=== PATIENT | male | born 1930 | race Caucasian/White ===

== ENCOUNTER 2017-12-04 01:12 | Inpatient (IN) | payer OTHER ==
[2017-12-04] VITALS (10 sets, daily range): BP systolic 137–164; BP diastolic 62–84; PULSE 79–93; TEMP 36.7–37.2; O2SAT 90–96; BMI 37.7
[~2017-12-04] VITALS: Ht 157.5 cm; Wt 93.5 kg
[~2017-12-04 01:12] MED LIST: AGG PO; ASPEC81 PO; CRS20 PO; ERGO1CAP35 PO; GLC500 PO; INSUINJ14 SC; LISI-725 PO; MCR5 PO; PANT40TA PO; SITA100T3 PO; SYN75 PO
[2017-12-04] MEDS ORDERED: CEFTRIAXONE SOD INJ 1 GM ADDVIAL IV STA (01:40)
[2017-12-04] MEDS ORDERED: ALBUT/IPRATROP 3MG/0.5MG NEB 3 ML VIAL INH STA (01:40)
[2017-12-04] MEDS ORDERED: SODIUM CHLORIDE 0.9% 500ML 500 ML IV STA (02:02)
[2017-12-04] MEDS ORDERED: LEVAQUIN 750MG / 150ML D5W IV STA (02:02)
[2017-12-04] MEDS ORDERED: GLIM4TAB2 PO (02:17)
[2017-12-04] MEDS ORDERED: MTR400 PO (02:17)
[2017-12-04] MEDS ORDERED: AGG PO (02:18)
[2017-12-04] MEDS ORDERED: AMLO-110 PO (02:19)
[2017-12-04] MEDS ORDERED: METF-384 PO (02:19)
[2017-12-04] MEDS ORDERED: CRS/10 PO (02:19)
[2017-12-04 02:27] LABS: HEMOGLOBIN 13.8 g/dL (14.0-18.0); MEAN CELL VOLUME 81.8 fL (80-100); MEAN CORPUSCULAR HEMOGLOBIN 28.9 pg (25-34); MEAN CORPUSCULAR HGB CONC 35.4 g/dl (32-36); MEAN PLATELET VOLUME 9.4 fL (7.4-10.4); PLATELET COUNT 156 K/uL (130-400); RED CELL DISTRIBUTION WIDTH CV 14.2 % (11.5-14.5); RED CELL DISTRIBUTION WIDTH SD 42.5 fL (36.4-46.3); WHITE BLOOD COUNT 8.42 K/uL (4.8-10.8)
[2017-12-04 02:33] LABS: INFLUENZA A PCR Neg for Influ A (NEG); INFLUENZA B PCR Neg for Influ B (NEG)
[2017-12-04 02:42] LABS: PTT PATIENT 26.6 SECONDS (21.0-31.0)
[2017-12-04 02:47] LABS: BASO % 0.1 %; BASO ABS # 0.01 K/uL (0-0.2); IG# 0.02 K/uL (0.00-0.02); LYMPH % 4.9 %; LYMPH ABS # 0.41 K/uL (1.2-3.4); MONO % 6.5 %; MONO ABS # 0.55 K/uL (0.11-0.59); NEUT % 88.3 %; NEUT ABS # 7.43 K/uL (1.4-6.5)
[2017-12-04 02:49] LABS: ALBUMIN 3.4 gm/dl (3.4-5.0); CALCIUM 8.5 mg/dl (8.5-10.1); CREATININE 1.23 mg/dl (0.60-1.40); POTASSIUM 3.9 mmol/L (3.5-5.1)
[2017-12-04 02:52] LABS: TOTAL PROTEIN 7.1 gm/dl (6.4-8.2)
[2017-12-04] MEDS ORDERED: MAGNESIUM SULFATE 1GM / D5W 1 GM BAG IV STA (02:55)
[2017-12-04] MEDS ORDERED: INSULIN GLARGINE SOLOSTAR 100 UNITS/ML 3 ML PEN SC ONE ×2 (04:07→07:45)
[2017-12-04] MEDS ORDERED: OPTIRAY 320 IV PRN (04:15)
[2017-12-04] MEDS ORDERED: LEVALBUTEROL/IPRATROPIUM NEB INH PRN (05:30)
[2017-12-04] MEDS ORDERED: ACETAMINOPHEN 325 MG TAB PO PRN (05:30)
[2017-12-04] MEDS ORDERED: HYDROmorphone INJ 0.5 MG/0.5 ML SYR IV PRN (05:30)
[2017-12-04] MEDS ORDERED: TRAMADOL HCL 50 MG TAB PO PRN (05:30)
[2017-12-04] MEDS ORDERED: GLUCOSE 10 TABS/TUBE PO PRN (05:30)
[2017-12-04] MEDS ORDERED: GLUCAGON FOR INJ 1 MG VIAL SQ PRN (05:30)
[2017-12-04] MEDS ORDERED: DEXTROSE 50% 50 ML SYR IV PRN (05:30)
[2017-12-04] MEDS ORDERED: PROCHLORPERAZINE INJ 5 MG in SYRINGE 4 ML IV PRN (05:30)
[2017-12-04] MEDS ORDERED: GLUCOSE 40% GEL 15 GM TUBE PO PRN (05:30)
[2017-12-04] MEDS ORDERED: LEVALBUTEROL/IPRATROPIUM NEB INH SCH ×2 (06:00→12:00)
[2017-12-04] MEDS ORDERED: LEVALBUTEROL 1.25MG/0.5ML NEB INH PRN (06:30)
[2017-12-04] MEDS ORDERED: IPRATROPIUM BROMIDE NEB SOLN 0.02% 2.5 ML VIAL INH PRN (06:30)
--- NOTE | 2017-12-04 06:37 | DIAGNOSTIC IMAGING REPORT ---
CT HEAD WITHOUT CONTRAST (CT) CLINICAL HISTORY: fall, transient leg weakness COMPARISON STUDY: October 11, 2014 TECHNIQUE: Axial CT of the brain is performed from the vertex to the skull base. IV contrast was not administered for this examination. A dose lowering technique was utilized adhering to the principles of ALARA. CT DOSE: FINDINGS: No intra or extra-axial mass lesions are visualized. There is no CT evidence of acute cortical infarction. There is no evidence of midline shift. There is no acute hemorrhage. No calvarial fractures are visualized. There are patchy white matter hypodensities likely on a small vessel basis. There is no evidence of pathologic ventricular dilatation. There is an old pontine infarct. There is trace fluid within the right maxillary sinus. Multiple ethmoid air cells are opacified. There is sphenoid sinus and frontal sinus mucosal thickening. There is an old defect within the left lamina papyracea. IMPRESSION: 1. No acute intracranial findings 2. Inflammatory changes in the paranasal sinuses. 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 Electronically signed by: Enoc Silva M.D. 12/04/2017 6:36 AM Dictated Date/Time: 12/04/2017 6:34 AM
[2017-12-04] MEDS ORDERED: LEVALBUTEROL/IPRATROPIUM NEB INH STA (06:40)
[2017-12-04] MEDS ORDERED: IPRATROPIUM BROMIDE NEB SOLN 0.02% 2.5 ML VIAL INH STA (06:46)
[2017-12-04] MEDS ORDERED: LEVALBUTEROL 1.25MG/0.5ML NEB INH STA (06:46)
--- NOTE | 2017-12-04 06:58 | HISTORY & PHYSICAL EXAMINATION ---
DATE OF ADMISSION: 12/04/2017 PRIMARY CARE DOCTOR: Dr. Olmsetad and the [facility]. CHIEF COMPLAINT: Fall, cough. HISTORY OF PRESENT ILLNESS: History obtained from the patient, family, and records. Medical history significant for hypertension, DM2 on oral meds, history of CVA, hyperlipidemia, BPH, reflux, hypothyroidism. Recent confinement 2010 for CVA. Patient discharged on Aggrenox. Three days history of cough symptoms productive of white sputum. No chest pain. Patient denies shortness of breath, although patient's family could see patient struggling to breathe. Sick contacts, no flu-like symptoms. Denies aspiration. Patient was in his room when he felt his legs give out. Patient could not get up, legs felt weak. No strength for some time. Patient found by son trying to get up. No head trauma, no syncope/LOC. Patient brought to Emergency Room. Noted to be hypoxemic. O2 sats in the 80s. Received IV Ceftriaxone, Levaquin for possible pneumonia. MEDICAL HISTORY: As above. SURGERIES: None.. HOME MEDICATIONS: Include Aggrenox, Norvasc, glimepiride, ibuprofen, lisinopril, Glucophage, Crestor, Januvia. ALLERGIES: No known drug allergies. FAMILY HISTORY: Diabetes, heart disease. PERSONAL AND SOCIAL HISTORY: Nonsmoker, no chronic intake of alcoholic beverages. Retired cross. REVIEW OF SYSTEMS: As per HPI. All 10 systems reviewed, all other ROS negative. PHYSICAL EXAMINATION: VITAL SIGNS: Blood pressure was noted to be 148/76, later 160/80, pulse rate 101 later 92, RR 22, temperature 36.6, sats 86 on room air, later 91 on 2 liters. GENERAL: Noted to be in minimal respiratory distress, coughing. Slightly anxious. SKIN: Pallor, warm. HEENT: Partial alopecia. Pale palpebral conjunctivae. No ptosis. Dry mucosa. Nasal cannula in place NECK: Supple, nontender. CHEST: Occasional wheeze. No tenderness. HEART: Regular rate and rhythm, no murmur. ABDOMEN: Some distention, nontender. EXTREMITIES: No edema. No gross deformity. No tenderness. NEUROLOGIC: Coherent. No gross focality except for mild hearing impairment and intention tremors of the upper extremities. LABORATORY DATA: Hemoglobin was noted to be 13.8, hematocrit 39, white cells 8.42, platelets 156. Sodium 136, potassium 3.9, chloride 103, CO2 20, BUN 22, creatinine 1.23, glucose 332. Hemoglobin A1c from January [address] head initial read no acute pathology. CTA, no central PE, dissection, patchy infiltrates right upper lung. ABG; pH 7.40, pCO2 32, pO2 64, sats 90 on 2 liters. ASSESSMENT: 1. Acute hypoxemic respiratory failure secondary to right bronchopneumonia no sepsis. 2. Hypertension, slightly elevated. 3. Mild anemia new onset. Last outpatient hemoglobin from the [facility] from 2012 was 14.2 4. DM2, on oral medications suboptimal control as of recent outpatient HgA1c. 5. History of cerebrovascular accident. PLAN: GMF supplemental O2 Nebs RTC p.r.n. Ceftriaxone, Doxycycline. Hold off on steroids for now given poorly controlled diabetes. Anemia workup. Basal insulin, ISS BG goal 140-180, carb count coverage indicated for suboptimal blood sugar control Check hemoglobin A1c; Diabetic education will likely be needed during confinement. PT, OT eval. DVT prophylaxis, Lovenox subQ. Full code. Patient's son requesting for updates from providers. Milton Desai Jr. at [phone]. [facility]
[2017-12-04] MEDS ORDERED: NSS + 20MEQ KCL 1000ML 1,000 ML IV ONE (07:00)
[2017-12-04] MEDS ORDERED: INSULIN ASPART 100 UNITS/ML 3 ML PEN SC ONE (07:00)
[2017-12-04] MEDS ORDERED: LISINOPRIL 20 MG TAB PO ONE (07:00)
[2017-12-04] MEDS: IPRATROPIUM BROMIDE NEB SOLN 0.02% 2.5 ML VIAL INH SCH ×3 (07:07→18:56)
[2017-12-04] MEDS: LEVALBUTEROL 1.25MG/0.5ML NEB INH SCH ×3 (07:08→18:56)
--- NOTE | 2017-12-04 07:14 | DIAGNOSTIC IMAGING REPORT ---
SINGLE VIEW CHEST CLINICAL HISTORY: Dyspnea. FINDINGS: An AP, portable, upright chest radiograph is compared to study dated 10/11/2014. The examination is degraded by portable technique and patient rotation. The heart is enlarged and there is atherosclerotic calcification of the thoracic aorta. The pulmonary vasculature is noncongested. Dependent airspace opacities likely represent atelectasis. Scattered calcified granulomas are observed. No large pleural effusion or pneumothorax is seen. The skeletal structures are osteopenic. The bony thorax is grossly intact. IMPRESSION: 1. Cardiomegaly without radiographic evidence of congestive failure. 2. Bibasilar opacities likely represent atelectasis. Correlate clinically for evidence of a mild infectious/inflammatory pneumonitis. Electronically signed by: Nelson Grimes M.D. 12/04/2017 7:12 AM Dictated Date/Time: 12/04/2017 7:11 AM
[2017-12-04 07:18] LABS: HEMOGLOBIN A1C 10.9 % (4.5-5.6)
--- NOTE | 2017-12-04 07:34 | DIAGNOSTIC IMAGING REPORT ---
CT ANGIOGRAM OF THE CHEST CLINICAL HISTORY: Dyspnea. Weakness. COMPARISON STUDY: Chest x-ray dated 12/04/2017. TECHNIQUE: Following the IV administration of 93 cc of Optiray 320, CT angiogram of the chest was performed from the upper abdomen to the thoracic inlet utilizing the pulmonary embolus protocol. Images are reviewed in the axial, sagittal, and coronal planes. 3-D MIPS images are created and assessed. IV contrast was administered without complication. A dose lowering technique was utilized adhering to the principles of ALARA. The examination is severely compromised by motion artifact, as well as by streak artifact from the arms which could not be elevated above the chest. CT DOSE: 1223.34 mGy.cm FINDINGS: Thyroid: Atrophic. Thoracic aorta: There is mild atherosclerotic calcification of the thoracic aorta, which is normal in caliber and demonstrates standard 3-vessel arch anatomy. No dissection is seen. Pulmonary vasculature: The pulmonary trunk is normal in caliber. There are no filling defects identified in main or lobar pulmonary arteries to suggest pulmonary embolus. Evaluation of the peripheral vessels is significantly compromised by motion artifact. Heart: The heart is mildly enlarged and without pericardial effusion. The coronary arteries are densely calcified. Lungs and pleural spaces: Evaluation of the lung parenchyma is significantly degraded by motion artifact. Scattered calcified granulomas are observed. Foci of scarring/atelectasis are present at the lung bases. Patchy groundglass consolidation is identified in the right upper lobe. Mild patchy consolidative changes also suggested at the left lung base. No pleural effusion is identified. Mediastinum: There is no mediastinal lymphadenopathy. There are calcified mediastinal nodes. Ellen: There are calcified hilar nodes. No hilar adenopathy is identified.. Axillae: There is no axillary lymphadenopathy. Upper abdomen: There is a small hiatal hernia. Numerous calcified hepatic and splenic granulomas are observed. Skeletal structures: The skeletal structures are osteopenic. Degenerative change is noted in the shoulders and thoracic spine. No lytic or blastic bony lesions are seen. IMPRESSION: 1. Severely streak and motion compromised examination. 2. There is no evidence of central pulmonary embolus in the main or lobar pulmonary arteries. 3. Patchy ground glass consolidation is identified in the right upper lobe and at the left lung base. The appearance is typical for an infectious/inflammatory pneumonitis. Radiographic follow-up to resolution is recommended. 4. Mild cardiac enlargement. 5. Additional findings as above. Electronically signed by: Nelson Grimes M.D. 12/04/2017 7:33 AM Dictated Date/Time: 12/04/2017 7:28 AM
[2017-12-04] MEDS: PANTOprazole SOD 40 MG TAB PO SCH (07:46)
[2017-12-04] MEDS: DIPYRIDAMOLE/ASPIRIN CAP PO SCH ×2 (07:46→20:59)
[2017-12-04] MEDS: AMLODIPINE BESYLATE 5 MG TAB PO SCH (07:46)
[2017-12-04] MEDS: ENOXAPARIN 30 MG/0.3 ML SYR SQ SCH (07:47)
[2017-12-04] MEDS: ROSUVASTATIN CALCIUM 10 MG TAB PO SCH (07:47)
[2017-12-04] MEDS ORDERED: LEVALBUTEROL 1.25MG/0.5ML NEB INH SCH (09:00)
[2017-12-04] MEDS ORDERED: IPRATROPIUM BROMIDE NEB SOLN 0.02% 2.5 ML VIAL INH SCH (09:00)
[2017-12-04] MEDS: INSULIN ASPART 100 UNITS/ML 3 ML PEN SC SCH ×3 (12:33→21:01)
--- NOTE | 2017-12-04 14:21 | EMERGENCY ROOM VISIT NOTE ---
History Report prepared by Obie: Rolando Grant Under the Supervision of: Dr. Nelson Flowers M.D. First contact with patient: 01:33 Chief Complaint: FALL Stated Complaint: FLU SYMPTOMS,WEAK LEGS,FELL History of Present Illness The patient is an 87 year old male who presents to the Emergency Room with complaints of constant weakness beginning tonight at 2330. The patient states that he fell tonight when he was trying to get up from the bed because his legs were weak and gave out on him. He notes that he did not hit his head and did not lose consciousness after his fall. He reports that he had not been feeling weak over the last few days, he had an episode of vomiting and notes a cough but denies any urinary symptoms, fever, current SOB, and CP. The patient states that his leg swelling is normal for him. Per son, the patient has been congested for the last two days. He notes that following his fall, the patient seemed SOB. The patient reports that he does not wear oxygen at home. Source of History: patient Onset: tonight at 2330 Position: other (global) Quality: other (weakness) Timing: constant Associated Symptoms: + cough, + vomiting, No LOC, No fevers, No chest pain, No SOB, No urinary symptoms Note: The patient states that his leg swelling is normal. Review of Systems See HPI for pertinent positives & negatives. A total of 10 systems reviewed and were otherwise negative. Past Medical & Surgical Medical Problems: (1) Benign hypertension (2) Benign prostatic hyperplasia (3) CVA (4) Hyperlipidemia (5) osteoarthrosis knees (6) Respiratory failure, acute Family History No pertinent family history stated. Social History Smoking Status: Never Smoker Alcohol Use: none Drug Use: none Marital Status: single Occupation Status: retired Current/Historical Medications Scheduled Amlodipine (Norvasc), 5 MG PO DAILY Aspirin-Dipyridamole 25MG/200MG (Aggrenox 200MG/25MG), 1 CAP PO BID Glimepiride (Glimepiride), 1 TAB PO DAILY Ibuprofen (Ibuprofen), 400 MG PO TIDM Lisinopril (Zestril), 20 MG PO BID Metformin Hcl (Glucophage), 1,000 MG PO BIDM Pantoprazole (Protonix), 40 MG PO QAM Rosuvastatin Calcium (Crestor), 10 MG PO DAILY Sitagliptin Phosphate (Januvia), 100 MG PO DAILY Allergies Coded Allergies: No Known Allergies (Unverified , 12/04/17) Physical Exam Vital Signs Date Time Temp Pulse Resp B/P (MAP) Pulse Ox O2 Delivery O2 Flow Rate FiO2 12/04/17 04:44 93 22 153/80 96 Nasal Cannula 2.0 12/04/17 03:56 97 19 161/78 94 2.0 12/04/17 02:56 103 22 163/72 91 Nasal Cannula 2.0 12/04/17 02:18 92 Nasal Cannula 2.0 12/04/17 02:16 103 16 140/63 91 Nasal Cannula 2.0 12/04/17 01:37 102 12/04/17 01:35 102 18 162/81 90 Room Air 12/04/17 01:24 36.6 101 21 148/76 86 Room Air Physical Exam GENERAL: Patient is in no acute distress. HEENT: No acute trauma, normocephalic atraumatic, mucous membranes moist, no nasal congestion, no scleral icterus. NECK: No stridor, no adenopathy, no meningismus, trachea is midline. LUNGS: Decreased breath sounds bilaterally, scattered wheezes bilaterally, breath sounds equal, no crackles, increased respiratory rate. HEART: Without murmurs gallops or rubs, mildly tachycardic with a regular rhythm. ABDOMEN: Soft, nontender, bowel sounds positive, no hernias, no peritonitis. EXTREMITIES: No cyanosis, full range of motion of all the joints without pain or difficulty, no signs for acute trauma, moderate pedal edema. NEUROLOGIC: Oriented x 3, no acute motor or sensory deficits, no focal weakness , no pronator drift or cerebellar dysfunction. SKIN: No rash, no jaundice, no diaphoresis. Medical Decision & Procedures ER Provider Diagnostic Interpretation: Radiology results as stated below per my review and interpretation: CHEST X-RAY: Potential pneumonia forming in left lower lung. No CHF. No pneumothorax. Laboratory Results 12/04/17 01:45 Red Blood Count 4.77, Mean Corpuscular Volume 81.8, Mean Corpuscular Hemoglobin 28.9, Mean Corpuscular Hemoglobin Concent 35.4, Mean Platelet Volume 9.4, Neutrophils (%) (Auto) 88.3, Lymphocytes (%) (Auto) 4.9, Monocytes (%) (Auto) 6.5, Eosinophils (%) (Auto) 0.0, Basophils (%) (Auto) 0.1, Neutrophils # (Auto) 7.43, Lymphocytes # (Auto) 0.41, Monocytes # (Auto) 0.55, Eosinophils # (Auto) 0.00, Basophils # (Auto) 0.01 12/04/17 01:45 Test 12/04/17 01:40 12/04/17 01:45 12/04/17 02:39 12/04/17 04:27 Influenza Type A (RT-PCR) Neg for Influ A (NEG) Influenza Type B (RT-PCR) Neg for Influ B (NEG) White Blood Count 8.42 K/uL (4.8-10.8) Red Blood Count 4.77 M/uL (4.7-6.1) Hemoglobin 13.8 g/dL (14.0-18.0) Hematocrit 39.0 % (42-52) Mean Corpuscular Volume 81.8 fL (80-100) Mean Corpuscular Hemoglobin 28.9 pg (25-34) Mean Corpuscular Hemoglobin Concent 35.4 g/dl (32-36) Platelet Count 156 K/uL (130-400) Mean Platelet Volume 9.4 fL (7.4-10.4) Neutrophils (%) (Auto) 88.3 % Lymphocytes (%) (Auto) 4.9 % Monocytes (%) (Auto) 6.5 % Eosinophils (%) (Auto) 0.0 % Basophils (%) (Auto) 0.1 % Neutrophils # (Auto) 7.43 K/uL (1.4-6.5) Lymphocytes # (Auto) 0.41 K/uL (1.2-3.4) Monocytes # (Auto) 0.55 K/uL (0.11-0.59) Eosinophils # (Auto) 0.00 K/uL (0-0.5) Basophils # (Auto) 0.01 K/uL (0-0.2) RDW Standard Deviation 42.5 fL (36.4-46.3) RDW Coefficient of Variation 14.2 % (11.5-14.5) Immature Granulocyte % (Auto) 0.2 % Immature Granulocyte # (Auto) 0.02 K/uL (0.00-0.02) Red Blood Cell Morphology Unremarkable Prothrombin Time 10.7 SECONDS (9.0-12.0) Prothromb Time International Ratio 1.0 (0.9-1.1) Activated Partial Thromboplast Time 26.6 SECONDS (21.0-31.0) Partial Thromboplastin Ratio 1.0 Anion Gap 10.0 mmol/L (3-11) Est Creatinine Clear Calc Drug Dose 50.1 ml/min Estimated GFR () 61.2 Estimated GFR (Non- 52.8 BUN/Creatinine Ratio 17.6 (10-20) Estimated Average Glucose 266 mg/dl Hemoglobin A1c 10.9 % (4.5-5.6) Calcium Level 8.5 mg/dl (8.5-10.1) Magnesium Level 1.6 mg/dl (1.8-2.4) Total Bilirubin 0.9 mg/dl (0.2-1) Aspartate Amino Transf (AST/SGOT) 17 U/L (15-37) Alanine Aminotransferase (ALT/SGPT) 20 U/L (12-78) Alkaline Phosphatase 113 U/L (45-117) Troponin I 0.031 ng/ml (0-0.045) Pro-B-Type Natriuretic Peptide 975 pg/ml (0-1800) Total Protein 7.1 gm/dl (6.4-8.2) Albumin 3.4 gm/dl (3.4-5.0) Globulin 3.7 gm/dl (2.5-4.0) Albumin/Globulin Ratio 0.9 (0.9-2) Beta-Hydroxybutyric Acid 11.02 mg/dL (0.2-2.81) Procalcitonin 0.41 ng/ml (0-0.5) Thyroid Stimulating Hormone (TSH) 3.230 uIu/ml (0.300-4.500) Lactic Acid Level 1.7 mmol/L (0.4-2.0) Arterial Blood pH 7.40 (7.35-7.45) Arterial Blood Partial Pressure CO2 32 mmHg (35-46) Arterial Blood Partial Pressure O2 64 mm/Hg (80-95) Arterial Blood HCO3 19 mmol/L (19-24) Arterial Blood Oxygen Saturation 90.9 % (90-95) Arterial Blood Base Excess -4.8 mEq/L (-9-1.8) Arterial Blood Gas Delivery 1.5L Christ Test POS (POS) Total Creatine Kinase 95 U/L (39-308) Test 12/04/17 05:20 Urine Color YELLOW Urine Appearance CLEAR (CLEAR) Urine pH 5.0 (4.5-7.5) Urine Specific [place] 1.034 (1.000-1.030) Urine Protein 1+ (NEG) Urine Glucose (UA) 3+ (NEG) Urine Ketones 1+ (NEG) Urine Occult Blood 1+ (NEG) Urine Nitrite NEG (NEG) Urine Bilirubin NEG (NEG) Urine Urobilinogen NEG (NEG) Urine Leukocyte Esterase NEG (NEG) Urine WBC (Auto) 0 /hpf (0-5) Urine RBC (Auto) 0-4 /hpf (0-4) Urine Hyaline Casts (Auto) 5-10 /lpf (0-5) Urine Epithelial Cells (Auto) 5-10 /lpf (0-5) Urine Bacteria (Auto) NEG (NEG) Laboratory results reviewed by me. Medications Administered Medications (Trade) Dose Ordered Sig/Van Route Start Time Stop Time Status Last Admin Dose Admin Albuterol/ Ipratropium (Duoneb) 3 ml NOW STAT INH 12/04/17 01:40 12/04/17 01:43 DC 12/04/17 01:47 3 ML Ceftriaxone Sodium (Rocephin Inj) 1 gm NOW STAT IV 12/04/17 01:40 12/04/17 01:43 DC 12/04/17 01:48 1 GM Levofloxacin (Levaquin / D5W) 750 mg NOW STAT IV 12/04/17 02:02 12/04/17 02:04 DC 12/04/17 02:15 750 MG Sodium Chloride 500 ml @ 999 mls/hr Q31M STAT IV 12/04/17 02:02 12/04/17 02:32 DC 12/04/17 02:16 999 MLS/HR Magnesium Sulfate (Magnesium Sulfate) 1 gm NOW STAT IV 12/04/17 02:55 12/04/17 02:56 DC 12/04/17 02:55 1 GM Insulin Glargine (Lantus Solostar Pen) 20 units 0407 ONCE SC 12/04/17 04:07 12/04/17 04:09 DC 12/04/17 04:18 20 UNITS ECG Per My Interpretation Indication: weakness Rate (beats per minute): 104 Rhythm: sinus tachycardia Findings: other (LVH present, no PVCs, no ST elevation) Comparison ECG Date: 10/11/2014 Change: no significant change ED Course 0134: The patient was evaluated in room A3. A complete history and physical exam was performed. 0140: Rocephin Inj 1gm IV, Duoneb 3ml INH 0202: Levofloxacin 750mg IV, Sodium Chloride 500 ml @ 999 mls/hr IV 0243: Upon reexamination the patient is stable. I discussed results and treatment plan with the patient. He verbalizes agreement and understanding. I spoke with Dr. Morejon of the [facility] service. We discussed the patient's results and findings. The patient will be evaluated by Dr. Morejon for further management. Medical Decision Differential diagnoses include: pneumonia, bronchitis, CHF, cardiac ischemia, influenza, dehydration, stroke, UTI, electrolyte abnormality, and anemia. There is no leukocytosis or concerning anemia. Renal panel testing shows a blood sugar around 300, no kidney failure. Magnesium is low at 1.6. There was no hepatitis. No coagulopathy. EKG shows a sinus tachycardia with LVH, no acute ischemic change. Cardiac enzyme testing 1 is not consistent with acute cardiac injury. Influenza testing was negative. Urinalysis does not show infection. Chest film shows what appears to be a left lower lobe infiltrate. No pneumothorax or CHF. Blood cultures are pending. Lactic acid level was not elevated making sepsis less likely. The patient received IV saline, he was given a DuoNeb. Patient received IV ceftriaxone and IV Levaquin. He was given IV magnesium. The patient was maintained on nasal cannula oxygen. The patient is improved with the above treatment. He was hypoxic upon presentation. He has had a cough and has developed weakness. I do think he has an early pneumonia and this has led to his issues this evening. A hospital stay is warranted. I spoke to the patient and to case management. I discussed the case with the on-call hospitalist. Medication Reconcilliation Current Medication List: was personally reviewed by me Blood Pressure Screening Patient's blood pressure: Elevated blood pressure Elevated blood pressure will be monitored by hospitalist. Consults Time Called: 0240 Consulting Physician: Dr. Morejon - Hospitalist, [facility] [place] Returned Call: [phone] Discussed the patient's case. The patient will be evaluated for further management. Impression Primary Impression: Hypoxia Additional Impressions: Pneumonia Weakness Scribe Attestation The scribe's documentation has been prepared under my direction and personally reviewed by me in its entirety. I confirm that the note above accurately reflects all work, treatment, procedures, and medical decision making performed by me. Departure Information Dispostion Being Evaluated By Hospitalist Referrals No Doctor, Assigned (PCP) Patient Instructions My [facility] Problem Qualifiers
[2017-12-04] MEDS ORDERED: COUGH DROP (SUGAR FREE) LOZ 24 LOZ/1 BOX LOZ ONE (16:01)
[2017-12-04] MEDS ORDERED: NURSING DECISION MEDICATION ORDER SCH (16:15)
[2017-12-04] MEDS ORDERED: COUGH DROP (SUGAR FREE) LOZ 24 LOZ/1 BOX LOZ PRN (17:00)
--- NOTE | 2017-12-04 19:02 | Progress Note ---
Medicine Progress Note Date & Time of Visit: Dec 04, 2017 at 11:47. Subjective Pt was seen and examined Lying in bed with no distress Pt said that he feels much better He said that he feels a little stronger Daughter and family member at bedside and update provided Denies any chest pain, palpitation, dizziness and SOB Objective Last 8 Hrs Date Time Temp Pulse Resp B/P (MAP) Pulse Ox O2 Delivery O2 Flow Rate FiO2 12/04/17 15:30 Room Air 12/04/17 15:01 36.7 79 19 152/64 (93) 92 Room Air 12/04/17 14:13 79 18 90 Room Air 12/04/17 13:52 93 12/04/17 11:03 37.2 91 Room Air Physical Exam: General- no acute distress Head- atraumatic Eyes- PERRL, EOMI ENT- oropharynx clear Neck- supple, no JVD Lungs-decrease BS Heart- regular rhythm Abdomen- normal bowel sounds Extremities- no calf tenderness Neuro- alert, oriented, PERRL, EOMI Skin- warm & dry Laboratory Results: Last 24 Hours Test 12/04/17 01:40 12/04/17 01:45 12/04/17 02:39 12/04/17 04:27 Influenza Type A (RT-PCR) Neg for Influ A Influenza Type B (RT-PCR) Neg for Influ B White Blood Count 8.42 K/uL Red Blood Count 4.77 M/uL Hemoglobin 13.8 g/dL Hematocrit 39.0 % Mean Corpuscular Volume 81.8 fL Mean Corpuscular Hemoglobin 28.9 pg Mean Corpuscular Hemoglobin Concent 35.4 g/dl Platelet Count 156 K/uL Mean Platelet Volume 9.4 fL Neutrophils (%) (Auto) 88.3 % Lymphocytes (%) (Auto) 4.9 % Monocytes (%) (Auto) 6.5 % Eosinophils (%) (Auto) 0.0 % Basophils (%) (Auto) 0.1 % Neutrophils # (Auto) 7.43 K/uL Lymphocytes # (Auto) 0.41 K/uL Monocytes # (Auto) 0.55 K/uL Eosinophils # (Auto) 0.00 K/uL Basophils # (Auto) 0.01 K/uL RDW Standard Deviation 42.5 fL RDW Coefficient of Variation 14.2 % Immature Granulocyte % (Auto) 0.2 % Immature Granulocyte # (Auto) 0.02 K/uL Red Blood Cell Morphology Unremarkable Prothrombin Time 10.7 SECONDS Prothromb Time International Ratio 1.0 Activated Partial Thromboplast Time 26.6 SECONDS Partial Thromboplastin Ratio 1.0 Sodium Level 133 mmol/L Potassium Level 3.9 mmol/L Chloride Level 103 mmol/L Carbon Dioxide Level 20 mmol/L Anion Gap 10.0 mmol/L Blood Urea Nitrogen 22 mg/dl Creatinine 1.23 mg/dl Est Creatinine Clear Calc Drug Dose 50.1 ml/min Estimated GFR () 61.2 Estimated GFR (Non- 52.8 BUN/Creatinine Ratio 17.6 Random Glucose 332 mg/dl Estimated Average Glucose 266 mg/dl Hemoglobin A1c 10.9 % Calcium Level 8.5 mg/dl Magnesium Level 1.6 mg/dl Total Bilirubin 0.9 mg/dl Aspartate Amino Transf (AST/SGOT) 17 U/L Alanine Aminotransferase (ALT/SGPT) 20 U/L Alkaline Phosphatase 113 U/L Troponin I 0.031 ng/ml Pro-B-Type Natriuretic Peptide 975 pg/ml Total Protein 7.1 gm/dl Albumin 3.4 gm/dl Globulin 3.7 gm/dl Albumin/Globulin Ratio 0.9 Beta-Hydroxybutyric Acid 11.02 mg/dL Procalcitonin 0.41 ng/ml Thyroid Stimulating Hormone (TSH) 3.230 uIu/ml Lactic Acid Level 1.7 mmol/L Arterial Blood pH 7.40 Arterial Blood Partial Pressure CO2 32 mmHg Arterial Blood Partial Pressure O2 64 mm/Hg Arterial Blood HCO3 19 mmol/L Arterial Blood Oxygen Saturation 90.9 % Arterial Blood Base Excess -4.8 mEq/L Arterial Blood Gas Delivery 1.5L Christ Test POS Total Creatine Kinase 95 U/L Test 12/04/17 05:20 12/04/17 07:56 12/04/17 07:59 12/04/17 11:54 Urine Color YELLOW Urine Appearance CLEAR Urine pH 5.0 Urine Specific [place] 1.034 Urine Protein 1+ Urine Glucose (UA) 3+ Urine Ketones 1+ Urine Occult Blood 1+ Urine Nitrite NEG Urine Bilirubin NEG Urine Urobilinogen NEG Urine Leukocyte Esterase NEG Urine WBC (Auto) 0 /hpf Urine RBC (Auto) 0-4 /hpf Urine Hyaline Casts (Auto) 5-10 /lpf Urine Epithelial Cells (Auto) 5-10 /lpf Urine Bacteria (Auto) NEG Bedside Glucose 411 mg/dl 337 mg/dl 251 mg/dl Test 12/04/17 16:50 Bedside Glucose 178 mg/dl Date/Time Source Procedure Growth Status 12/04/17 02:15 Blood Blood Culture Pending Received 12/04/17 01:45 Blood Blood Culture Pending Received Assessment & Plan Acute hypoxemic respiratory failure Secondary to pneumonia CTA chest showed No PE. Patchy ground glass consolidation is identified in the right upper lobe and at the left lung base. Received Levaquin and Rocephin in the ER Procalcitonin and WBC normal Continue Doxycycline and Rocephin IV Blood cx pending Continue duoneb treatment DM type 2 Uncontrolled Recent HBa1c 10.9 (12/04/17) Starting on Lantus subq Oral med on hold daughter said that pt is not on board yet to discharge on insulin explained to daughter and patient that, oral meds will not control his BS Weakness CT head negative for intracranial abnormality PT/OT Fall precaution Hypomagnesemia Mg replaced Monitor Mg level Hypertension Slightly elevated. Continue lisinopril and amlodipine Monitor BP Hx CVA Stable DVT px on lovenox CODE STATUS FULL CODE Disposition Patient's son requesting for updates from providers. . Milton Jr Lloyd. at [phone]. Discharge once medically stable Current Inpatient Medications: Current Inpatient Medications Medications (Trade) Dose Ordered Sig/Van Route Start Time Stop Time Status Last Admin Dose Admin Ioversol (Optiray 320) 100 ml UD PRN IV 12/04/17 04:15 12/08/17 04:14 Enoxaparin Sodium (Lovenox Inj) 30 mg DAILY SQ 12/04/17 08:00 01/03/18 08:59 12/04/17 07:47 30 MG Acetaminophen (Tylenol Tab) 650 mg Q4H PRN PO 12/04/17 05:30 01/03/18 05:29 Insulin Aspart (novoLOG ASPART) SLIDING SCALE If C... ACHS SC 12/04/17 11:00 01/03/18 10:59 12/04/17 17:58 4 UNITS Glucose (Glucose 40% Gel) 15-30 GRAMS 15 GRAMS... UD PRN PO 12/04/17 05:30 01/03/18 05:29 Glucose (Glucose Chew Tab) 4-8 Tablets 4 Tabl... UD PRN PO 12/04/17 05:30 01/03/18 05:29 Dextrose (Dextrose 50% 50ML Syringe) 25-50ML OF 50% DW IV FOR... UD PRN IV 12/04/17 05:30 01/03/18 05:29 Glucagon (Glucagon Inj) 1 mg UD PRN SQ 12/04/17 05:30 01/03/18 05:29 Tramadol HCl (Ultram Tab) 25 mg Q6H PRN PO 12/04/17 05:30 01/03/18 05:29 Prochlorperazine Edisylate 5 mg/ Syringe 5 ml @ 5 mls/min Q6H PRN IV 12/04/17 05:30 01/03/18 05:29 Potassium Chloride/Sodium Chloride 1,000 ml @ 60 mls/hr [id number] ONCE IV 12/04/17 07:00 12/04/17 23:39 12/04/17 07:47 60 MLS/HR Amlodipine Besylate (Norvasc Tab) 5 mg DAILY PO 12/04/17 08:00 01/03/18 08:59 12/04/17 07:46 5 MG Dipyridamole/ Aspirin (Aggrenox 200MG/ 25MG Cap) 1 cap BID PO 12/04/17 08:00 01/03/18 08:59 12/04/17 07:46 1 CAP Lisinopril (Zestril Tab) 20 mg BID PO 12/04/17 20:00 01/03/18 20:59 Pantoprazole Sodium (Protonix Tab) 40 mg QAM PO 12/04/17 08:00 01/03/18 08:59 12/04/17 07:46 40 MG Rosuvastatin Calcium (Crestor Tab) 10 mg DAILY PO 12/04/17 08:00 01/03/18 08:59 12/04/17 07:47 10 MG Hydromorphone HCl (Dilaudid Inj) 0.25 mg Q4H PRN IV 12/04/17 05:30 12/18/17 05:29 Ceftriaxone Sodium 1 gm/ Dextrose 50 ml @ 100 mls/hr Q24H IV 12/05/17 02:00 12/12/17 01:59 Doxycycline Hyclate (Vibramycin Cap) 100 mg BID PO 12/05/17 08:00 12/12/17 08:59 Ipratropium [place] (Atrovent 0.02% 0.5MG/2.5ML Neb) 0.5 mg Q4H PRN INH 12/04/17 06:30 01/03/18 06:29 Levalbuterol (Xopenex 1.25MG/ 0.5ML Neb) 1.25 mg Q4H PRN INH 12/04/17 06:30 01/03/18 06:29 Ipratropium [place] (Atrovent 0.02% 0.5MG/2.5ML Neb) 0.5 mg Q6R INH 12/04/17 09:00 01/03/18 08:59 12/04/17 14:10 0.5 MG Levalbuterol (Xopenex 1.25MG/ 0.5ML Neb) 1.25 mg Q6R INH 12/04/17 09:00 01/03/18 08:59 12/04/17 14:10 1.25 MG Insulin Glargine (Lantus Solostar Pen) 40 units DAILY SC 12/05/17 08:00 01/04/18 08:59 Menthol (Nice Wicho) 1 wicho PRN PRN WICHO 12/04/17 17:00 01/03/18 16:59
[2017-12-04] MEDS: LISINOPRIL 20 MG TAB PO SCH (21:06)
[2017-12-05] VITALS (9 sets, daily range): BP systolic 164–186; BP diastolic 70–80; PULSE 75–85; TEMP 36.5–36.8; O2SAT 93–96; BMI 37.7
[2017-12-05] MEDS: LEVALBUTEROL 1.25MG/0.5ML NEB INH SCH ×4 (01:49→18:56)
[2017-12-05] MEDS: IPRATROPIUM BROMIDE NEB SOLN 0.02% 2.5 ML VIAL INH SCH ×4 (01:49→18:56)
[2017-12-05] MEDS: CEFTRIAXONE SOD INJ 1 GM in DEXTROSE 5% ADD-VANTAGE 50ML 50 ML IV SCH (02:31)
[2017-12-05 06:49] LABS: HEMATOCRIT 33.9 % (42-52); HEMOGLOBIN 11.9 g/dL (14.0-18.0); MEAN CELL VOLUME 80.7 fL (80-100); MEAN CORPUSCULAR HEMOGLOBIN 28.3 pg (25-34); MEAN CORPUSCULAR HGB CONC 35.1 g/dl (32-36); PLATELET COUNT 129 K/uL (130-400); RED CELL DISTRIBUTION WIDTH CV 14.4 % (11.5-14.5); RED CELL DISTRIBUTION WIDTH SD 42.5 fL (36.4-46.3); RETIC COUNT % 0.9 % (0.5-2.0); WHITE BLOOD COUNT 6.46 K/uL (4.8-10.8)
[2017-12-05 07:21] LABS: BASO % 0.2 %; BASO ABS # 0.01 K/uL (0-0.2); EOS % 0.3 %; EOS ABS # 0.02 K/uL (0-0.5); IG# 0.01 K/uL (0.00-0.02); LYMPH % 15.3 %; LYMPH ABS # 0.99 K/uL (1.2-3.4); MONO % 7.3 %; MONO ABS # 0.47 K/uL (0.11-0.59); NEUT % 76.7 %; NEUT ABS # 4.96 K/uL (1.4-6.5)
[2017-12-05 07:29] LABS: CALCIUM 8.5 mg/dl (8.5-10.1); CREATININE 1.11 mg/dl (0.60-1.40); POTASSIUM 3.6 mmol/L (3.5-5.1)
[2017-12-05] MEDS ORDERED: INSULIN GLARGINE SOLOSTAR 100 UNITS/ML 3 ML PEN SC SCH (08:00)
[2017-12-05] MEDS: DIPYRIDAMOLE/ASPIRIN CAP PO SCH ×2 (08:12→20:24)
[2017-12-05] MEDS: ROSUVASTATIN CALCIUM 10 MG TAB PO SCH (08:13)
[2017-12-05] MEDS: AMLODIPINE BESYLATE 5 MG TAB PO SCH (08:14)
[2017-12-05] MEDS: PANTOprazole SOD 40 MG TAB PO SCH (08:15)
[2017-12-05] MEDS: LISINOPRIL 20 MG TAB PO SCH ×2 (08:16→20:24)
[2017-12-05] MEDS: ENOXAPARIN 30 MG/0.3 ML SYR SQ SCH (08:19)
[2017-12-05] MEDS: DOXYCYCLINE HYCLATE 100 MG CAP PO SCH ×2 (08:29→20:24)
--- NOTE | 2017-12-05 08:47 | Clinical Documentation Query ---
CLINICAL DOCUMENTATION QUERY Dr. BABCOCK, In your clinical opinion is this patient being managed for: ( x) Chronic kidney disease, stage 3 ( ) Not Agree ( ) Other explanation of clinical findings (Please Explain) ( ) Unable to determine (Please Define) ( ) Need to Discuss The medical record reflects the following clinical findings, treatment, and risk factors. Clinical Indicators: 87 yo male presenting with pneumonia, hyperglycemia. Review of limited historical GFR showed range of 52.8-59.8 Treatment: monitor PRP's, treat comorbid conditions Risk Factors: uncontrolled DM II, CVA, HTN Please clarify and document your clinical opinion in the progress notes and discharge summary. Terms such as "probable", "suspected", "likely", "questionable", "possible", or "still to be ruled out" are acceptable. IF IN AGREEMENT, YOU MUST DOCUMENT ABOVE DIAGNOSTIC STATEMENT IN DAILY PROGRESS NOTES AND DISCHARGE SUMMARY. This document is not part of the patient's record. Thank You, Tara Proctor, RN [phone]
[2017-12-05] MEDS: INSULIN GLARGINE SOLOSTAR 100 UNITS/ML 3 ML PEN SC SCH (08:53)
[2017-12-05] MEDS: INSULIN ASPART 100 UNITS/ML 3 ML PEN SC SCH ×4 (08:53→20:26)
[2017-12-05] MEDS ORDERED: INSDGIPEN SC (16:47)
--- NOTE | 2017-12-05 16:47 | Progress Note ---
Internal Med Progress Note Date of Service: Dec 05, 2017. Provider Documentation: SUBJECTIVE: Feels much better since admission Has minimal nonproductive cough No fever chills No complaint of chest pain palpitation, dizziness spell or shortness of breath OBJECTIVE: Vital Signs-as noted below Exam: General-female no sign of distress sclera nonicteric Eyes-sclera nonicteric ENT- moist oral mucous Neck-no JVD Lungs-diminished, faint Rale on right lower lobe Heart-regular S1-S2 Abdomen-soft nontender Extremities-no Lower extremity edema Neuro-alert awake oriented 3, no focal neurological deficit Lab data as noted below. ASSESSMENT & PLAN: RIGHT UPPER LOBE PNEUMONIA/ACUTE HYPOXEMIC RESPIRATORY FAILURE -Presented with cough hypoxic in room air CT chest with contrast shows no evidence of PE -Patchy ground glass consolidation is identified in the right upper lobe and left lower base No evidence of sepsis respiratory Respiratory no hypoxia status improved No hypoxia, in room air does not require supplemental oxygen Patient will be continued with empiric antibiotic As needed nebulizer treatment POORLY CONTROLLED TYPE 2 DIABETES Hemoglobin A1c more than 10 on 12/04/17 Patient was on multiple oral agents/including Metformin/Januvia. Glimepiride Appreciate input from diabetic management Patient will need insulin to have adequate diabetic management/control Started with Lantus 40 units daily Patient was taught self administration of insulin with Lantus pain Family member is willing to help with the blood sugar checks to arrange for outpatient insulin therapy Does not have Medicare part D Insulin pain as out patient is not covered Self-pay Lantus is quite expensive for the patient to be able to afford for long-term care Patient gets his medication from [place] Prescriptions will be given to assess insulin coverage at the [place] [facility] Patient will be given prescription for insulin needles, testing prescription, lancets needs close follow-up with family physician as an outpatient for Monitoring of type 2 diabetes CKD STAGE 3: possible due to diabetic nephropathy GFR < 60 monitor renal function on ACEI already GENERALIZED WEAKNESS Possible secondary to infection/dehydration/pneumonia Functional status gradually improved Appreciate PT OT evaluation patient prefers to return home upon discharge HYPOMAGNESEMIA Corrected follow lites HYPERTENSION Blood pressure stable continue outpatient meds of lisinopril and amlodipine HISTORY OF CVA No acute issues continue with aspirin and statin CODE STATUS: Full code DVT PROPHYLAXIS Subcu heparin DISPOSITION Lives with son PT OT requested social service following for discharge planning patient insisted returning home Willing for home health visiting nurse and home PT Vital Signs: Date Time Temp Pulse Resp B/P (MAP) Pulse Ox O2 Delivery O2 Flow Rate FiO2 12/06/17 08:30 Room Air 12/06/17 07:12 77 16 90 Room Air 12/06/17 07:06 36.8 76 18 135/67 (89) 94 Room Air 12/06/17 01:49 83 20 96 Room Air 12/06/17 00:00 Room Air 12/05/17 22:59 36.8 77 20 164/70 (101) 93 Room Air 12/05/17 18:58 81 16 94 Room Air 12/05/17 16:00 Room Air 12/05/17 15:25 36.5 75 20 165/74 (104) 96 Room Air 12/05/17 14:21 80 16 94 Room Air Lab Results: Results Past 24 Hours Test 12/05/17 11:31 12/05/17 16:29 12/05/17 20:14 12/06/17 06:01 Range/Units Bedside Glucose 325 161 250 70-99 mg/dl White Blood Count 5.67 4.8-10.8 K/uL Red Blood Count 4.56 4.7-6.1 M/uL Hemoglobin 12.9 14.0-18.0 g/dL Hematocrit 37.0 42-52 % Mean Corpuscular Volume 81.1 80-100 fL Mean Corpuscular Hemoglobin 28.3 25-34 pg Mean Corpuscular Hemoglobin Concent 34.9 32-36 g/dl Platelet Count 142 130-400 K/uL Mean Platelet Volume 9.2 7.4-10.4 fL Neutrophils (%) (Auto) 70.7 % Lymphocytes (%) (Auto) 21.3 % Monocytes (%) (Auto) 6.7 % Eosinophils (%) (Auto) 0.7 % Basophils (%) (Auto) 0.2 % Neutrophils # (Auto) 4.01 1.4-6.5 K/uL Lymphocytes # (Auto) 1.21 1.2-3.4 K/uL Monocytes # (Auto) 0.38 0.11-0.59 K/uL Eosinophils # (Auto) 0.04 0-0.5 K/uL Basophils # (Auto) 0.01 0-0.2 K/uL RDW Standard Deviation 42.7 36.4-46.3 fL RDW Coefficient of Variation 14.3 11.5-14.5 % Immature Granulocyte % (Auto) 0.4 % Immature Granulocyte # (Auto) 0.02 0.00-0.02 K/uL Test 12/06/17 07:32 Range/Units Bedside Glucose 165 70-99 mg/dl
[2017-12-06] MEDS: CEFTRIAXONE SOD INJ 1 GM in DEXTROSE 5% ADD-VANTAGE 50ML 50 ML IV SCH (01:43)
[2017-12-06] MEDS: LEVALBUTEROL 1.25MG/0.5ML NEB INH SCH ×3 (01:47→14:12)
[2017-12-06] MEDS: IPRATROPIUM BROMIDE NEB SOLN 0.02% 2.5 ML VIAL INH SCH ×3 (01:47→14:12)
[2017-12-06 01:49] VITALS: PULSE 83; O2SAT 96
[2017-12-06 06:57] LABS: BASO % 0.2 %; BASO ABS # 0.01 K/uL (0-0.2); EOS % 0.7 %; EOS ABS # 0.04 K/uL (0-0.5); HEMOGLOBIN 12.9 g/dL (14.0-18.0); IG# 0.02 K/uL (0.00-0.02); LYMPH % 21.3 %; LYMPH ABS # 1.21 K/uL (1.2-3.4); MEAN CELL VOLUME 81.1 fL (80-100); MEAN CORPUSCULAR HEMOGLOBIN 28.3 pg (25-34); MEAN CORPUSCULAR HGB CONC 34.9 g/dl (32-36); MEAN PLATELET VOLUME 9.2 fL (7.4-10.4); MONO % 6.7 %; MONO ABS # 0.38 K/uL (0.11-0.59); NEUT % 70.7 %; NEUT ABS # 4.01 K/uL (1.4-6.5); PLATELET COUNT 142 K/uL (130-400); RED CELL DISTRIBUTION WIDTH CV 14.3 % (11.5-14.5); RED CELL DISTRIBUTION WIDTH SD 42.7 fL (36.4-46.3); WHITE BLOOD COUNT 5.67 K/uL (4.8-10.8)
[2017-12-06 07:06] VITALS: BP 135/67; PULSE 76; TEMP 36.8; O2SAT 94
[2017-12-06 07:12] VITALS: PULSE 77; O2SAT 90
[2017-12-06] MEDS: DIPYRIDAMOLE/ASPIRIN CAP PO SCH (08:30)
[2017-12-06] MEDS: PANTOprazole SOD 40 MG TAB PO SCH (08:30)
[2017-12-06] MEDS: AMLODIPINE BESYLATE 5 MG TAB PO SCH (08:30)
[2017-12-06] MEDS: ROSUVASTATIN CALCIUM 10 MG TAB PO SCH (08:30)
[2017-12-06] MEDS: LISINOPRIL 20 MG TAB PO SCH (08:30)
[2017-12-06] MEDS: DOXYCYCLINE HYCLATE 100 MG CAP PO SCH (08:30)
[2017-12-06] MEDS: ENOXAPARIN 30 MG/0.3 ML SYR SQ SCH (08:31)
[2017-12-06] MEDS: INSULIN GLARGINE SOLOSTAR 100 UNITS/ML 3 ML PEN SC SCH (08:34)
[2017-12-06] MEDS: INSULIN ASPART 100 UNITS/ML 3 ML PEN SC SCH ×3 (08:34→16:30)
[2017-12-06] MEDS ORDERED: INSDGIPEN SC ×2 (09:16→15:14)
[2017-12-06 09:58] VITALS: Ht 157.5 cm; Wt 93.5 kg
--- NOTE | 2017-12-06 11:11 | Discharge Instructions ---
Discharge Instructions Date of Service Dec 06, 2017. Admission Reason for Admission: Respiratory Failure, Acute Discharge Discharge Diagnosis / Problem: POORLY CONTROLLED DIABETES /PNEUMONIA Discharge Goals Goal(s): Increase independence, Improve disease control, Diagnostic testing, Therapeutic intervention Activity Recommendations Activity Limitations: resume your previous activity . Instructions / Follow-Up Instructions / Follow-Up HOSPITAL FOLLOW WITH 12/11/2017 at 9:45 AM Martin Olmstead MD Internal Medicine [facility] [place] FOLLOW UP WITH DR VILLALBA AT [facility] ON 12/12/17 @ 1 PM PATIENT IS STARTED ON INSULIN FOR HB A1C > 10 ,POORLY CONTROLLED DIABETES WHILE ON MULTIPLE ORAL ANTIDIABETIC MEDICATIONS DISCHARGED ON INSULIN LANTUS SOLOSTAR PEN 40 U SC DAILY DUE TO TREMOR /SHAKING OF HANDS -CORRECT UNIT OF INSULIN MAY BE DIFFICULT TO DRAW FORM VIAL WITH INSULIN SYRINGE -LANTUS SOLOSTAR PEN IS PREFERABLE -FOR ACCURATE INSULIN DOSE ADMINISTRATION PLEASE CHECK BLOOD SUGAR BEFORE BREAKFAST ( FASTING ) /BEFORE LUNCH /BEFORE DINNER AND BEFORE BED PLEASE KEEP LOG OF THE RESULTS AND BRING TO NEXT PHYSICIAN VISIT Current Hospital Diet Patient's current hospital diet: Diabetes Type 2 Diet, AHA Diet (Heart Healthy) Discharge Diet Recommended Diet: AHA Diet (Heart Healthy), Diabetes Type 2 Diet Pending Studies Studies pending at discharge: yes List of pending studies: REPEAT HbA1C IN 3-4 MONTHS Laboratory Results Hemoglobin A1c Test 12/04/17 01:45 Range/Units Estimated Average Glucose 266 mg/dl Hemoglobin A1c 10.9 H 4.5-5.6 % Medical Emergencies . Who to Call and When: Medical Emergencies: If at any time you feel your situation is an emergency, please call 911 immediately. . Non-Emergent Contact Non-Emergency issues call your: Primary Care Provider . . "Provider Documentation" section prepared by Beverly Cox. .
[2017-12-06 14:12] VITALS: PULSE 81; O2SAT 97
[2017-12-06 14:23] VITALS: BP 155/76; PULSE 80; TEMP 36.6; O2SAT 95
[2017-12-06] MEDS ORDERED: INSU32MI13 (16:06)
--- NOTE | 2017-12-06 16:10 | Discharge Summary ---
Discharge Summary Date of Service Dec 06, 2017. Discharge Summary Admission Date: Dec 04, 2017 at 05:21 Discharge Date: Dec 06, 2017 Discharge Disposition: Home with services Principal Diagnosis: POORLY CONTROLLED DIABETES /PNEUMONIA Medication Reconciliation New Medications: Insulin Pen Needle (Bd Pen Needle/Zeynep/Ultra) 1 Mis Mis EA, #100 Insulin Glargine (Lantus Solostar) 100 Unit/Ml Inj 40 UNITS SC DAILY for 30 Days, #3 PEN 2 Refills NEEDS INSULIN PEN FOR HAND TREMOR UNABLE TO DRAW ACCURATE AMOUNT OF INSULIN FORM VIAL Continued Medications: Amlodipine (Norvasc) 5 Mg Tab 5 MG PO DAILY, TAB Aspirin-Dipyridamole 25MG/200MG (Aggrenox 200MG/25MG) 1 Cap Cap 1 CAP PO BID, CAP Lisinopril (Zestril) 20 Mg Tab 20 MG PO BID, 0 Refills Metformin Hcl (Glucophage) 1,000 Mg Tab 1000 MG PO BIDM, TAB Pantoprazole (Protonix) 40 Mg Tab 40 MG PO QAM, #30 0 Refills Rosuvastatin Calcium (Crestor) 10 Mg Tab 10 MG PO DAILY, TAB Sitagliptin Phosphate (Januvia) 100 Mg Tab 100 MG PO DAILY, 0 Refills Discontinued Medications: Glimepiride (Glimepiride) 4 Mg Tab 1 TAB PO DAILY, TAB 3 Refills Ibuprofen (Ibuprofen) 400 Mg Tab 400 MG PO TIDM Admission Information HPI (per Admitting provider): DATE OF ADMISSION: 12/04/2017 PRIMARY CARE DOCTOR: [facility] CHIEF COMPLAINT: Fall, cough. HISTORY OF PRESENT ILLNESS: History obtained from the patient, family, and records. Medical history significant for hypertension, DM2 on oral meds, history of CVA, hyperlipidemia, BPH, reflux, hypothyroidism. Recent confinement 2010 for CVA. Patient discharged on Aggrenox. Three days history of cough symptoms productive of white sputum. No chest pain. Patient denies shortness of breath, although patient's family could see patient struggling to breathe. Sick contacts, no flu-like symptoms. Denies aspiration. Patient was in his room when he felt his legs give out. Patient could not get up, legs felt weak. No strength for some time. Patient found by son trying to get up. No head trauma, no syncope/LOC. Patient brought to Emergency Room. Noted to be hypoxemic. O2 sats in the 80s. Received IV Ceftriaxone, Levaquin for possible pneumonia. MEDICAL HISTORY: As above. SURGERIES: None.. HOME MEDICATIONS: Include Aggrenox, Norvasc, glimepiride, ibuprofen, lisinopril, Glucophage, Crestor, Januvia. ALLERGIES: No known drug allergies. FAMILY HISTORY: Diabetes, heart disease. PERSONAL AND SOCIAL HISTORY: Nonsmoker, no chronic intake of alcoholic beverages. Retired cross. REVIEW OF SYSTEMS: As per HPI. All 10 systems reviewed, all other ROS negative. Physical Exam (per Admitting): PHYSICAL EXAMINATION: VITAL SIGNS: Blood pressure was noted to be 148/76, later 160/80, pulse rate 101 later 92, RR 22, temperature 36.6, sats 86 on room air, later 91 on 2 liters. GENERAL: Noted to be in minimal respiratory distress, coughing. Slightly anxious. SKIN: Pallor, warm. HEENT: Partial alopecia. Pale palpebral conjunctivae. No ptosis. Dry mucosa. Nasal cannula in place NECK: Supple, nontender. CHEST: Occasional wheeze. No tenderness. HEART: Regular rate and rhythm, no murmur. ABDOMEN: Some distention, nontender. EXTREMITIES: No edema. No gross deformity. No tenderness. NEUROLOGIC: Coherent. No gross focality except for mild hearing impairment and intention tremors of the upper extremities. Hospital Course Cough has improved No fever chills Denies of any discomfort Able to be discharged home today Exam: General-female no sign of distress sclera nonicteric Eyes-sclera nonicteric ENT- moist oral mucous Neck-no JVD Lungs-diminished, faint Rale on right lower lobe Heart-regular S1-S2 Abdomen-soft nontender Extremities-no Lower extremity edema Neuro-alert awake oriented 3, no focal neurological deficit RIGHT UPPER LOBE PNEUMONIA/ACUTE HYPOXEMIC RESPIRATORY FAILURE -Presented with cough hypoxic in room air CT chest with contrast shows no evidence of PE -Patchy ground glass consolidation is identified in the right upper lobe and left lower base No evidence of sepsis respiratory Respiratory no hypoxia status improved No hypoxia, in room air does not require supplemental oxygen Treated antibiotic treatment POORLY CONTROLLED TYPE 2 DIABETES Hemoglobin A1c more than 10 on 12/04/17 Patient was on multiple oral agents/including Metformin/Januvia/Glimepiride Appreciate input from diabetic management Patient will need insulin to have adequate diabetic management/control Started with Lantus 40 units daily Patient was taught self administration of insulin with Lantus pain Family member is willing to help with the blood sugar checks to arrange for outpatient insulin therapy Updated by [place] pharmacy have coverage for insulin Lantus SoloSTAR pen Discharge home with Lantus 40 units subcu daily CKD STAGE 3: Renal function at baseline possible due to diabetic nephropathy GFR < 60 on ACEI already GENERALIZED WEAKNESS Resolved To ambulate independently Should PT OT evaluation-stable to return to home Possible secondary to infection/dehydration/pneumonia HYPERTENSION Blood pressure stable continue outpatient meds of lisinopril and amlodipine HISTORY OF CVA No acute issues continue with aspirin and statin CODE STATUS: Full code DVT PROPHYLAXIS Subcu heparin DISPOSITION Discharge home today Total time spent on discharge = 40 mins This includes examination of the patient, discharge planning, medication reconciliation, and communication with other providers. Discharge Instructions Discharge Instructions Date of Service Dec 06, 2017. Admission Reason for Admission: Respiratory Failure, Acute Discharge Discharge Diagnosis / Problem: POORLY CONTROLLED DIABETES /PNEUMONIA Discharge Goals Goal(s): Increase independence, Improve disease control, Diagnostic testing, Therapeutic intervention Activity Recommendations Activity Limitations: resume your previous activity . Instructions / Follow-Up Instructions / Follow-Up HOSPITAL FOLLOW WITH 12/11/2017 at 9:45 AM Martin Olmstead MD Internal Medicine [facility] FOLLOW UP WITH DR VILLALBA AT [facility] ON 12/12/17 @ 1 PM PATIENT IS STARTED ON INSULIN FOR HB A1C > 10 ,POORLY CONTROLLED DIABETES WHILE ON MULTIPLE ORAL ANTIDIABETIC MEDICATIONS DISCHARGED ON INSULIN LANTUS SOLOSTAR PEN 40 U SC DAILY DUE TO TREMOR /SHAKING OF HANDS -CORRECT UNIT OF INSULIN MAY BE DIFFICULT TO DRAW FORM VIAL WITH INSULIN SYRINGE -LANTUS SOLOSTAR PEN IS PREFERABLE -FOR ACCURATE INSULIN DOSE ADMINISTRATION PLEASE CHECK BLOOD SUGAR BEFORE BREAKFAST ( FASTING ) /BEFORE LUNCH /BEFORE DINNER AND BEFORE BED PLEASE KEEP LOG OF THE RESULTS AND BRING TO NEXT PHYSICIAN VISIT Current Hospital Diet Patient's current hospital diet: Diabetes Type 2 Diet, AHA Diet (Heart Healthy) Discharge Diet Recommended Diet: AHA Diet (Heart Healthy), Diabetes Type 2 Diet Pending Studies Studies pending at discharge: yes List of pending studies: REPEAT HbA1C IN 3-4 MONTHS Laboratory Results Hemoglobin A1c Test 12/04/17 01:45 Range/Units Estimated Average Glucose 266 mg/dl Hemoglobin A1c 10.9 H 4.5-5.6 % Medical Emergencies . Who to Call and When: Medical Emergencies: If at any time you feel your situation is an emergency, please call 911 immediately. . Non-Emergent Contact Non-Emergency issues call your: Primary Care Provider . . "Provider Documentation" section prepared by Beverly Cox. . Additional Copies To Martin Olmstead M.D.
[2017-12-06] MEDS ORDERED: DXY100 PO (17:31)
[2017-12-06 18:13] VITALS: BP 155/76; PULSE 80; TEMP 36.6; O2SAT 95
[2017-12-07] MEDS ORDERED: DOXYCYCLINE HYCLATE 100 MG CAP PO SCH (08:00)
== END 2017-12-06 18:44 | disposition home health service (06) | DRG 193 ==
LOC: C.EDB 01:14 → C.4E 05:21 → ENRESERV 05:43 → CANBEDREQ 06:26
PROVIDERS: ADMIT Internal Medicine; ATTEND Hospitalist
DX: J18.0 Bronchopneumonia, unspecified organism (principal); J96.01 Acute respiratory failure with hypoxia; I12.9 Hypertensive chronic kidney disease with stage 1 through stage 4 chronic kidney disease, or unspecified chronic kidney disease; N40.0 Benign prostatic hyperplasia without lower urinary tract symptoms; Z86.73 Personal history of transient ischemic attack (TIA), and cerebral infarction without residual deficits; E78.5 Hyperlipidemia, unspecified; E11.9 Type 2 diabetes mellitus without complications; E03.9 Hypothyroidism, unspecified; J45.909 Unspecified asthma, uncomplicated; N18.3 Chronic kidney disease, stage 3 (moderate); E83.42 Hypomagnesemia